=== PATIENT | female | born 1975 | race Caucasian/White ===

== ENCOUNTER 2022-02-25 10:52 | Emergency (ER) | payer MEDICAID ==
[2022-02-25] MEDS ORDERED: HYDROmorphone 1 MG/ML Syringe IVPUSH ONE (11:05)
[2022-02-25] MEDS ORDERED: Sodium Chloride 0.9% 1,000 ML IV ONE (11:05)
[2022-02-25] MEDS ORDERED: Sodium Chloride 0.9% 10 ML Syringe FLUSH PRN (11:05)
[2022-02-25 11:35] LABS: ANION GAP 6.8 mmol/L (5-15)
[2022-02-25] MEDS ORDERED: Ketorolac 30 MG/ML SDV IVPUSH ONE (11:35)
== END 2022-02-25 13:00 | disposition home or self-care (01) ==
LOC: KA.ED 10:52
DX: N39.0 Urinary tract infection, site not specified (principal); Z88.1 Allergy status to other antibiotic agents; Z88.8 Allergy status to other drugs, medicaments and biological substances; Z88.0 Allergy status to penicillin; Z88.2 Allergy status to sulfonamides; Z79.899 Other long term (current) drug therapy
CPT/HCPCS: 36415; 74176; 80053; 81001; 83690; 85025; 87086; 87088; 87186; 96361; 96374; 96375; 99284; 99284-25; J1170; J1885; J3490; J7030

== ENCOUNTER 2022-02-28 12:54 | Emergency (ER) | payer MEDICAID ==
[2022-02-28] MEDS ORDERED: Sodium Chloride 0.9% 1,000 ML ONE (13:29)
[2022-02-28] MEDS ORDERED: Sodium Chloride 0.9% 1,000 ML IV ONE (13:35)
[2022-02-28] MEDS ORDERED: Ketorolac 30 MG/ML SDV IVPUSH ONE (13:36)
[2022-02-28] MEDS ORDERED: Ondansetron 4 MG/2 ML SDV IVPUSH ONE (13:37)
[2022-02-28] MEDS ORDERED: Phenazopyridine 100 MG Tab PO ONE (13:38)
[2022-02-28] MEDS ORDERED: HYDROmorphone 1 MG/ML Syringe IVPUSH ONE (13:43)
[2022-02-28] MEDS ORDERED: diphenhydrAMINE 50 MG/ML SDV IVPUSH ONE (14:15)
[2022-02-28 14:16] LABS: ANION GAP 10.3 mmol/L (5-15); CHLORIDE,CL 100 mmol/L (98-107); SODIUM,NA 137 mmol/L (136-145)
[2022-02-28 14:18] LABS: ESTIMATED GFR 101 mL/min (>=60)
[2022-02-28] MEDS ORDERED: Nitrofurantoin Monohydrate/Macrocrystalline 100 MG Cap ONE (14:24)
[2022-02-28] MEDS: Nitrofurantoin Monohydrate/Macrocrystalline 100 MG Cap PO SCH ×2 (14:26→14:27)
[2022-02-28] MEDS ORDERED: Phenazopyridine 100 MG Tab ONE (14:50)
[2022-02-28] MEDS ORDERED: Phenazopyridine 100 MG Tab PO STA (14:51)
== END 2022-02-28 15:00 | disposition home or self-care (01) ==
LOC: KA.ED 12:54
DX: N39.0 Urinary tract infection, site not specified (principal); Z88.1 Allergy status to other antibiotic agents; Z88.8 Allergy status to other drugs, medicaments and biological substances; Z88.0 Allergy status to penicillin; Z88.2 Allergy status to sulfonamides; Z79.899 Other long term (current) drug therapy
CPT/HCPCS: 36415; 80048; 81001; 85025; 87086; 87088; 87186; 96361; 96374; 96375; 99284; 99284-25; A9270-GY; J1170; J1200; J1885; J2405; J7030